=== PATIENT | female | born 1990 | race Caucasian/White ===

== ENCOUNTER 2017-01-13 12:19 | Inpatient (IN) | payer BC, OTHER ==
[~2017-01-13] VITALS: Ht 167.6 cm; Wt 57.6 kg
[2017-01-14] MEDS ORDERED: MIRALAX 17 GM POWD.PACK PO PRN (16:00)
[2017-01-14] MEDS ORDERED: LORAZEPAM 2 MG/1 ML VIAL IM PRN (16:00)
[2017-01-14] MEDS ORDERED: MAGNESIUM HYDROXIDE 30 ML LIQUID UDC PO PRN (16:00)
[2017-01-14] MEDS ORDERED: MAG HYDROX/AL HYDROX/SIMETH 30 ML LIQUID UDC PO PRN (16:00)
[2017-01-14] MEDS ORDERED: LOPERAMIDE HCL 2 MG CAPSULE PO PRN ×2 (16:00)
[2017-01-14] MEDS ORDERED: CLONIDINE HCL 0.1 MG TABLET PO PRN (16:00)
[2017-01-14] MEDS ORDERED: diphenhydrAMINE 50 MG CAPSULE PO PRN (16:00)
[2017-01-14] MEDS ORDERED: ONDANSETRON 4 MG/2 ML VIAL IM PRN (16:00)
[2017-01-14] MEDS ORDERED: LORAZEPAM 1 MG TABLET PO PRN ×2 (16:00)
[2017-01-14] MEDS ORDERED: THIAMINE HCL 200 MG/2 ML VIAL IM ONE (16:00)
[2017-01-14] MEDS ORDERED: ACETAMINOPHEN 325 MG TABLET PO PRN (16:00)
[2017-01-14 16:26] LABS: *URINE HCG, QUAL NEGATIVE (NEGATIVE)
[2017-01-14 16:29] LABS: BASOPHILS # (AUTO) 0.1 K/uL (0.0-8.0); BASOPHILS % (AUTO) 0.9 % (0.0-2.0); EOSINOPHILS % (AUTO) 0.5 % (0.0-7.0); HEMATOCRIT 42.4 % (37-47); HEMOGLOBIN 14.8 G/DL (12.0-16.0); LYMPHOCYTES # (AUTO) 1.3 K/UL (0.8-4.8); LYMPHOCYTES % (AUTO) 22.4 % (20.5-51.5); MEAN CORPUSCULAR HEMOGLOBIN 34.5 UUG (27.0-31.0); MEAN CORPUSCULAR HGB CONC 35 g/dL (32.0-37.0); MEAN CORPUSCULAR VOLUME 98.9 FL (81.0-99.0); MONOCYTES # (AUTO) 0.3 K/UL (0.1-1.30); MONOCYTES % (AUTO) 5.9 % (0.0-11.0); NEUTROPHILS # (AUTO) 4.2 K/UL (1.8-8.9); NEUTROPHILS % (AUTO) 70.3 % (38.5-71.5); PLATELET COUNT (AUTO) 217 K/UL (150-450); RED BLOOD CELL COUNT(AUTO) 4.29 MIL/UL (4.2-5.4); WHITE BLOOD COUNT (AUTO) 5.9 K/UL (4.0-11.2)
[2017-01-14 16:38] LABS: BILIRUBIN,TOTAL 0.3 mg/dL (0.2-1.0); POTASSIUM 4.1 mmol/L (3.5-5.1); TOTAL PROTEIN, SERUM 7.5 g/dL (6.4-8.2)
[2017-01-14 16:39] LABS: *AMPHETAMINE, URINE NEGATIVE (NEGATIVE); *BARBITURATE, URINE NEGATIVE (NEGATIVE); *CANNABINOID, URINE POSITIVE (NEGATIVE); *COCCAINE, URINE POSITIVE (NEGATIVE); *OPIATE, URINE NEGATIVE (NEGATIVE); *PHENCYCLIDINE SCREEN,URINE NEGATIVE (NEGATIVE)
[2017-01-14] MEDS ORDERED: LORAZEPAM 1 MG TABLET PO SCH ×2 (17:00→21:00)
[2017-01-14 17:55] VITALS: BP 135/89
[2017-01-14 20:03] VITALS: BP 103/60
[2017-01-15 04:00] VITALS: BP 115/87
[2017-01-15 08:14] VITALS: BP 104/74
[2017-01-15] MEDS ORDERED: TUBERCULIN,PURIF.PROT.DERIV. 5 TU/0.1 ML TEST ID ONE (09:00)
[2017-01-15] MEDS: LORAZEPAM 1 MG TABLET PO SCH ×3 (09:05→20:10)
[2017-01-15] MEDS: THIAMINE HCL 100 MG TABLET PO SCH (09:06)
[2017-01-15] MEDS: MULTIVITAMINS,THERAPEUTIC TABLET PO SCH (09:06)
[2017-01-15] MEDS: FOLIC ACID 1 MG TABLET PO SCH (09:06)
[2017-01-15] MEDS ORDERED: LORAZEPAM 1 MG TABLET PO ONE (11:00)
[2017-01-15] MEDS ORDERED: GABAPENTIN 300 MG CAPSULE PO ONE (11:00)
[2017-01-15 13:43] VITALS: BP 113/78
[2017-01-15 17:21] VITALS: BP 120/80
[2017-01-15 20:00] VITALS: BP 132/93
[2017-01-15] MEDS: ONDANSETRON ODT 4 MG TAB.RAPDIS SL PRN (20:10)
[2017-01-15] MEDS: GABAPENTIN 300 MG CAPSULE PO SCH (20:11)
[2017-01-15] MEDS: QUETIAPINE FUMARATE 200 MG TABLET PO PRN (20:56)
[2017-01-16 08:00] VITALS: BP 118/78
[2017-01-16] MEDS: LORAZEPAM 1 MG TABLET PO SCH ×3 (08:35→20:14)
[2017-01-16] MEDS: FOLIC ACID 1 MG TABLET PO SCH (08:35)
[2017-01-16] MEDS: THIAMINE HCL 100 MG TABLET PO SCH (08:35)
[2017-01-16] MEDS: MULTIVITAMINS,THERAPEUTIC TABLET PO SCH (08:35)
[2017-01-16] MEDS: GABAPENTIN 300 MG CAPSULE PO SCH ×3 (08:35→20:14)
[2017-01-16] MEDS ORDERED: LORAZEPAM 1 MG TABLET PO SCH (09:00)
[2017-01-16] MEDS ORDERED: LORAZEPAM 1 MG TABLET PO ONE (10:30)
[2017-01-16 12:00] VITALS: BP 118/85
[2017-01-16 13:29] LABS: HEPATITIS B SURFACE AG Negative (Negative)
[2017-01-16 16:00] VITALS: BP 118/86
[2017-01-16 20:00] VITALS: BP 121/82
[2017-01-16] MEDS: QUETIAPINE FUMARATE 200 MG TABLET PO PRN (20:14)
[2017-01-17 08:00] VITALS: BP 105/67
[2017-01-17] MEDS: IBUPROFEN 600 MG TABLET PO PRN (08:19)
[2017-01-17] MEDS: FOLIC ACID 1 MG TABLET PO SCH (08:19)
[2017-01-17] MEDS: GABAPENTIN 300 MG CAPSULE PO SCH ×2 (08:19→15:41)
[2017-01-17] MEDS: MULTIVITAMINS,THERAPEUTIC TABLET PO SCH (08:19)
[2017-01-17] MEDS: THIAMINE HCL 100 MG TABLET PO SCH (08:20)
[2017-01-17] MEDS ORDERED: LORAZEPAM 1 MG TABLET PO SCH ×2 (09:00)
[2017-01-17 12:00] VITALS: BP 109/72
[2017-01-17] MEDS ORDERED: LORAZEPAM 1 MG TABLET PO ONE (13:00)
[2017-01-17 16:00] VITALS: BP 117/81
[2017-01-17] MEDS: LORAZEPAM 1 MG TABLET PO SCH ×2 (16:47→20:45)
[2017-01-17 20:00] VITALS: BP 131/92
[2017-01-17] MEDS ORDERED: GABAPENTIN 300 MG CAPSULE PO SCH (21:00)
[2017-01-17] MEDS: QUETIAPINE FUMARATE 200 MG TABLET PO PRN (21:22)
[2017-01-18] VITALS: BP 104/76
[2017-01-18 04:00] VITALS: BP 95/61
[2017-01-18 08:00] VITALS: BP 112/76
[2017-01-18] MEDS: THIAMINE HCL 100 MG TABLET PO SCH (08:40)
[2017-01-18] MEDS: GABAPENTIN 300 MG CAPSULE PO SCH ×3 (08:40→20:16)
[2017-01-18] MEDS: MULTIVITAMINS,THERAPEUTIC TABLET PO SCH (08:40)
[2017-01-18] MEDS: LORAZEPAM 1 MG TABLET PO SCH ×2 (08:40→12:35)
[2017-01-18] MEDS: FOLIC ACID 1 MG TABLET PO SCH (08:40)
[2017-01-18] MEDS ORDERED: LORAZEPAM 1 MG TABLET PO SCH ×4 (09:00→21:00)
[2017-01-18 12:00] VITALS: BP 125/81
[2017-01-18] MEDS ORDERED: PROPRANOLOL HCL 20 MG TABLET PO ONE (15:00)
[2017-01-18 16:00] VITALS: BP 118/75
[2017-01-18 20:00] VITALS: BP 114/88
[2017-01-18] MEDS: PROPRANOLOL HCL 20 MG TABLET PO SCH (20:16)
[2017-01-18] MEDS: QUETIAPINE FUMARATE 200 MG TABLET PO PRN (21:55)
[2017-01-19 08:00] VITALS: BP 118/74
[2017-01-19] MEDS: MULTIVITAMINS,THERAPEUTIC TABLET PO SCH (08:35)
[2017-01-19] MEDS: LORAZEPAM 1 MG TABLET PO SCH ×3 (08:35→20:33)
[2017-01-19] MEDS: GABAPENTIN 300 MG CAPSULE PO SCH ×3 (08:35→20:32)
[2017-01-19] MEDS: PROPRANOLOL HCL 20 MG TABLET PO SCH ×2 (08:36→20:33)
[2017-01-19] MEDS: FOLIC ACID 1 MG TABLET PO SCH (08:36)
[2017-01-19] MEDS: THIAMINE HCL 100 MG TABLET PO SCH (08:36)
[2017-01-19] MEDS ORDERED: LORAZEPAM 1 MG TABLET PO SCH ×2 (09:00)
[2017-01-19 12:00] VITALS: BP 103/68
[2017-01-19 16:00] VITALS: BP 120/86
[2017-01-19 20:00] VITALS: BP 109/78
[2017-01-19] MEDS: QUETIAPINE FUMARATE 200 MG TABLET PO PRN (21:36)
[2017-01-20 08:00] VITALS: BP 92/55
[2017-01-20] MEDS: MULTIVITAMINS,THERAPEUTIC TABLET PO SCH (08:23)
[2017-01-20] MEDS: PROPRANOLOL HCL 20 MG TABLET PO SCH ×2 (08:24→20:56)
[2017-01-20] MEDS: FOLIC ACID 1 MG TABLET PO SCH (08:24)
[2017-01-20] MEDS: GABAPENTIN 300 MG CAPSULE PO SCH ×3 (08:24→20:56)
[2017-01-20] MEDS: THIAMINE HCL 100 MG TABLET PO SCH (08:24)
[2017-01-20] MEDS ORDERED: LORAZEPAM 1 MG TABLET PO SCH (09:00)
[2017-01-20] MEDS: ONDANSETRON ODT 4 MG TAB.RAPDIS SL PRN (09:56)
[2017-01-20 12:00] VITALS: BP 104/69
[2017-01-20 16:00] VITALS: BP 115/72
[2017-01-20] MEDS: IBUPROFEN 600 MG TABLET PO PRN (18:33)
[2017-01-20 20:00] VITALS: BP 121/80
[2017-01-20] MEDS ORDERED: IBUP-1955 PO (20:34)
[2017-01-20] MEDS ORDERED: PROP20TA22 PO (20:34)
[2017-01-20] MEDS ORDERED: QUET200T PO (20:34)
[2017-01-20] MEDS ORDERED: GABA-534 PO ×2 (20:34)
[2017-01-20] MEDS: QUETIAPINE FUMARATE 200 MG TABLET PO PRN (20:56)
[2017-01-21 08:17] VITALS: BP 105/70
[2017-01-21 08:31] VITALS: BP 105/70
[2017-01-21] MEDS: PROPRANOLOL HCL 20 MG TABLET PO SCH (08:31)
[2017-01-21] MEDS: THIAMINE HCL 100 MG TABLET PO SCH (08:31)
[2017-01-21] MEDS: GABAPENTIN 300 MG CAPSULE PO SCH (08:31)
[2017-01-21] MEDS: FOLIC ACID 1 MG TABLET PO SCH (08:31)
[2017-01-21] MEDS: MULTIVITAMINS,THERAPEUTIC TABLET PO SCH (08:31)
== END 2017-01-21 09:45 | disposition other institution (70) | DRG 895 ==
LOC: SRC 01-14 14:45
PROVIDERS: ADMIT Internal Medicine; ATTEND Internal Medicine
PROC: HZ2ZZZZ Detoxification Services for Substance Abuse Treatment (ICD-10-PCS; principal; 2017-01-14)
PROC: HZ31ZZZ Individual Counseling for Substance Abuse Treatment, Behavioral (ICD-10-PCS; 2017-01-16)
PROC: HZ41ZZZ Group Counseling for Substance Abuse Treatment, Behavioral (ICD-10-PCS; 2017-01-17)
DX: F10.232 Alcohol dependence with withdrawal with perceptual disturbance (principal); F12.90 Cannabis use, unspecified, uncomplicated; F13.10 Sedative, hypnotic or anxiolytic abuse, uncomplicated; F41.9 Anxiety disorder, unspecified; Z59.1 Inadequate housing; Y90.6 Blood alcohol level of 120-199 mg/100 ml; F90.9 Attention-deficit hyperactivity disorder, unspecified type; Z81.1 Family history of alcohol abuse and dependence; Z83.2 Family history of diseases of the blood and blood-forming organs and certain disorders involving the immune mechanism; Z80.6 Family history of leukemia; Z91.410 Personal history of adult physical and sexual abuse; Z91.89 Other specified personal risk factors, not elsewhere classified; Z82.0 Family history of epilepsy and other diseases of the nervous system; F14.10 Cocaine abuse, uncomplicated; F17.210 Nicotine dependence, cigarettes, uncomplicated; R76.8 Other specified abnormal immunological findings in serum; F32.9 Major depressive disorder, single episode, unspecified; R73.9 Hyperglycemia, unspecified
CPT/HCPCS: 36415; 70030-TC; 80307; 80349; 80353; 83735; 84703; 85025; 86580; 86592; 86705; 86780; 86803; 87340; 87806; G0480; Q0162; Q0163